=== PATIENT | male | born 1970 | race Asian ===

== ENCOUNTER 2019-12-14 22:50 | Inpatient (IN) | payer OTHER ==
[~2019-12-14] VITALS: Ht 165.1 cm; Wt 56.7 kg
[2019-12-14 23:07] VITALS: BP 169/98
[2019-12-15 01:47] LABS: ABSOLUTE LYMPHOCYTES 1.6 thou/uL (0.8-5.3); ABSOLUTE MONOCYTES 0.6 thou/uL (0.0-1.2); BASOPHILS 0.3 %; EOSINOPHILS 0.2 %; HEMATOCRIT 44.1 % (42.0-52.0); HEMOGLOBIN 15.2 gm/dL (14.0-18.0); LYMPHOCYTES 13.1 %; MCH 30.8 pg (26.0-34.0); MCHC 34.4 g/dL (28.0-37.0); MCV 89.6 fL (80.0-100.0); MONOCYTES 4.8 %; MPV 7.4 fl. (7.2-11.1); NUCLEATED RBCS 0 /100WBC; PLATELET COUNT* 196 thou/uL (150-400); POLYS 81.6 %; RBC 4.92 mil/uL (4.50-6.00); RDW-CV 12.2 % (10.5-14.5); WBC 12.3 thou/uL (4.0-11.0)
[2019-12-15 01:51] LABS: CALCIUM 8.4 mg/dL (8.5-10.1); POTASSIUM 3.8 mmol/L (3.5-5.1)
[2019-12-15 01:53] LABS: PROTIME 10.5 Seconds (9.20-11.50)
[2019-12-15 01:56] LABS: ALBUMIN 4.2 g/dL (3.4-5.0); TOTAL BILIRUBIN 0.3 mg/dL (<0.1-1.0); TOTAL PROTEIN 7.2 g/dL (6.4-8.2)
[2019-12-15 02:30] VITALS: BP 126/83
[2019-12-15 04:15] VITALS: BP 154/93
[2019-12-15 07:30] VITALS: BP 134/79
[2019-12-15 14:41] VITALS: BP 143/92
[2019-12-15 20:03] VITALS: BP 138/79
[2019-12-16 06:04] LABS: ABSOLUTE EOSINOPHILS 0.1 thou/uL (0.0-0.7); ABSOLUTE LYMPHOCYTES 2.2 thou/uL (0.8-5.3); ABSOLUTE MONOCYTES 0.6 thou/uL (0.0-1.2); ABSOLUTE NEUTROPHILS 4.6 thou/uL (1.6-8.1); BASOPHILS 0.4 %; EOSINOPHILS 1.7 %; HEMATOCRIT 43.5 % (42.0-52.0); HEMOGLOBIN 15.1 gm/dL (14.0-18.0); LYMPHOCYTES 28.8 %; MCH 31.4 pg (26.0-34.0); MCHC 34.8 g/dL (28.0-37.0); MCV 90.3 fL (80.0-100.0); MONOCYTES 8.3 %; MPV 7.3 fl. (7.2-11.1); NUCLEATED RBCS 0 /100WBC; PLATELET COUNT* 166 thou/uL (150-400); POLYS 60.8 %; RBC 4.81 mil/uL (4.50-6.00); RDW-CV 12.4 % (10.5-14.5); WBC 7.6 thou/uL (4.0-11.0)
[2019-12-16 06:18] LABS: CALCIUM 8.4 mg/dL (8.5-10.1); CREATININE 0.8 mg/dL (0.6-1.3); POTASSIUM 3.8 mmol/L (3.5-5.1)
[2019-12-16 07:20] VITALS: BP 124/80
[2019-12-16 19:42] VITALS: BP 137/83
[2019-12-17 07:50] VITALS: BP 143/92
[2019-12-17] MEDS ORDERED: HYDROCODON-ACE1 EAC7 PO (13:27)
[2019-12-17 13:52] VITALS: BP 143/92
== END 2019-12-17 15:15 | disposition home or self-care (01) | DRG 563 ==
LOC: M.ERS 22:50 → M.TBA-ER 12-15 01:54 → M.ORTHSURG 12-15 01:54
PROVIDERS: Emergency Medicine; Internal Medicine; ADMIT Internal Medicine; ATTEND Internal Medicine
DX: S92.002A Unspecified fracture of left calcaneus, initial encounter for closed fracture (principal); W18.39XA Other fall on same level, initial encounter; Y93.89 Activity, other specified; Y92.89 Other specified places as the place of occurrence of the external cause; Y99.8 Other external cause status; Z20.828 Contact with and (suspected) exposure to other viral communicable diseases; Z79.899 Other long term (current) drug therapy